=== PATIENT | male | born 1980 | race Caucasian/White ===

== ENCOUNTER 2016-10-01 10:48 | Emergency (ER) | payer OTHER ==
[~2016-10-01] VITALS: Ht 193 cm; Wt 95.5 kg
[2016-10-01 10:52] VITALS: BP 119/75; TEMP 98.7
[2016-10-01] MEDS ORDERED: ULTRAM 50MG TAB50 MG PO (12:05)
[2016-10-01 12:42] VITALS: PULSE 63
== END 2016-10-01 13:27 | disposition home or self-care (01) ==
LOC: COL.ER 10:48
DX: M54.2 Cervicalgia (principal)

== ENCOUNTER → 2016-10-06 | Outpatient (CLI) | payer OTHER ==
[~2016-10-06] MED LIST: ULTRAM 50MG TAB50 MG PO
== END ==
LOC: COL.RAD 09:23
DX: M54.2 Cervicalgia (principal)

== ENCOUNTER → 2016-10-23 | Outpatient (CLI) | payer OTHER | LOC: MHCPAIN 12:43 | DX: G89.29 Other chronic pain (principal); M47.22 Other spondylosis with radiculopathy, cervical region; R51 Headache | CPT/HCPCS: G0463 ==

== ENCOUNTER → 2016-11-05 | Outpatient (CLI) | payer OTHER | LOC: MHCPAIN 09:45 | DX: M50.90 Cervical disc disorder, unspecified, unspecified cervical region (principal) | CPT/HCPCS: A9585; J1100 ==

== ENCOUNTER → 2016-12-11 | Outpatient (CLI) | payer OTHER | LOC: MHCPAIN 08:51 | DX: G89.29 Other chronic pain (principal); M50.90 Cervical disc disorder, unspecified, unspecified cervical region; M54.12 Radiculopathy, cervical region; M54.81 Occipital neuralgia; R51 Headache | CPT/HCPCS: G0463 ==

== ENCOUNTER → 2016-12-18 | Outpatient (CLI) | payer OTHER | LOC: MHCPAIN 11:06 | DX: M54.81 Occipital neuralgia (principal) | CPT/HCPCS: J1100 ==

== ENCOUNTER 2017-06-09 08:23 | Emergency (ER) | payer OTHER ==
[~2017-06-09] VITALS: Ht 193 cm; Wt 97.7 kg
[2017-06-09 08:25] VITALS: TEMP 98.3
[2017-06-09] MEDS ORDERED: LEVAQUIN 5500 MG/TA1 PO (08:28)
[2017-06-09] MEDS ORDERED: LEXAPRO 10MG10 MG PO (08:28)
[2017-06-09] MEDS ORDERED: FLOMAX 0.40.4 MG/CAP PO (08:28)
[2017-06-09 09:15] LABS: BASO # 0.1 (0.0-0.2); BASO % 0.9 % (0.0-2.0); EOS # 0.1 (0.0-0.7); GRAN # 4.2 (1.4-6.5); GRAN % 64.8 % (42.2-75.2); HEMATOCRIT 41.5 % (42.0-52.0); HEMOGLOBIN 14.2 g/dl (13.5-18.0); LYMPH # 1.6 (1.2-3.4); LYMPH % 24.8 % (20.0-51.0); MEAN CELL VOLUME 83 fl (80.0-100.0); MEAN CORPUSCULAR HEMOGLOBIN 28 pg (27.0-31.0); MEAN CORPUSCULAR HGB CONC 34 g/dl (33.0-37.0); MONO # 0.5 (0.1-0.6); MONO % 7.2 % (1.7-9.3); PLATELET COUNT 264 K/mm3 (130-400); RED BLOOD COUNT 5.03 M/mm3 (4.20-5.60); WHITE BLOOD COUNT 6.4 K/mm3 (4.8-10.8)
[2017-06-09 09:28] LABS: ACETAMINOPHEN < 10 ug/mL (10-30); ADJUSTED CALCIUM 8.9 mg/dL (8.4-10.2); ALANINE AMINOTRANSFERASE 35 U/L (21-72); ALBUMIN 4.6 gm/dL (3.5-5.0); ALCOHOL(ethanol),MEDICAL < 10 mg/dL; ALKALINE PHOSPHATASE 85 U/L (50-136); ANION GAP 12 mmol/L (7-16); BILIRUBIN,TOTAL 0.4 mg/dL (0.0-1.0); BLOOD UREA NITROGEN 12 mg/dL (9-20); CALCIUM 9.4 mg/dL (8.4-10.2); CARBON DIOXIDE 23 mmol/L (22-30); CHLORIDE 105 mmol/L (98-107); CREATININE, serum 0.97 mg/dL (0.66-1.25); GLUCOSE 178 mg/dL (74-106); POTASSIUM 3.7 mmol/L (3.4-5.0); SALICYLATE < 1.0 mg/dL; SODIUM 139 mmol/L (137-145); TOTAL PROTEIN 7.3 gm/dL (6.4-8.2)
[2017-06-09 09:28] LABS: AMPHETAMINE URINE NEGATIVE; BARBITURATES URINE NEGATIVE; BENZODIAZEPINES URINE NEGATIVE; BUPRENORPHINE URINE NEGATIVE; METHADONE URINE NEGATIVE; OPIATES URINE NEGATIVE; OXYCODONE URINE NEGATIVE; PHENCYCLIDINE URINE NEGATIVE; PROPOXYPHENE URINE NEGATIVE; THC CANNABINOIDS URINE NEGATIVE; TRICYCLIC ANTIDEPRESS URINE NEGATIVE
[2017-06-09 13:39] LABS: COLLECTION METHOD CLEAN CATCH
[2017-06-09 13:46] LABS: MUCOUS Present /lpf; PH 5 (5-8); SQUAMOUS EPITHELIAL 0-2 /hpf; URINE APPEARANCE Turbid; URINE BACTERIA None Seen /hpf; URINE BILIRUBIN Negative (NEGATIVE); URINE BLOOD Negative (NEGATIVE); URINE CALCIUM OXALATE CRYSTAL Present /hpf; URINE COLOR Amber; URINE GLUCOSE 1+ (NEGATIVE); URINE KETONE Negative (NEGATIVE); URINE LEUKOCYTE ESTERASE Negative (NEGATIVE); URINE PROTEIN(semi-quant) Negative (NEGATIVE); URINE RBC 0-2 /hpf; URINE UROBILINOGEN Negative (NEGATIVE)
[2017-06-09 16:42] VITALS: BP 139/97; PULSE 63
== END 2017-06-09 16:42 ==
LOC: COL.ER 08:23
PROVIDERS: Physician Assistant
DX: R45.851 Suicidal ideations (principal); R45.850 Homicidal ideations; F32.9 Major depressive disorder, single episode, unspecified; F41.9 Anxiety disorder, unspecified; Z87.442 Personal history of urinary calculi

== ENCOUNTER → 2017-06-25 | Outpatient (CLI) | payer OTHER ==
[~2017-06-25] MED LIST changes: +CYMBALTA 20MG20 MG PO; +DESYREL 50MG50 MG PO; +FLOMAX 0.40.4 MG/CAP PO; +GLUCOPHAGE500 MG/TAB PO; +LEVAQUIN 5500 MG/TA1 PO; +LEXAPRO 10MG10 MG PO; +NEURONTIN400 MG/CAP PO
== END ==
LOC: MHCPAIN 11:18
DX: G89.29 Other chronic pain (principal); M50.123 Cervical disc disorder at C6-C7 level with radiculopathy; M54.81 Occipital neuralgia
CPT/HCPCS: G0463

== ENCOUNTER 2017-07-02 19:09 | Emergency (ER) | payer OTHER ==
[~2017-07-02] VITALS: Ht 193 cm; Wt 101.4 kg
[~2017-07-02 19:09] MED LIST changes: -CYMBALTA 20MG20 MG PO; -DESYREL 50MG50 MG PO; -GLUCOPHAGE500 MG/TAB PO; -NEURONTIN400 MG/CAP PO
[2017-07-02 19:13] VITALS: TEMP 98.9
[2017-07-02] MEDS ORDERED: CYMBALTA 20MG20 MG PO (19:17)
[2017-07-02] MEDS ORDERED: DESYREL 50MG50 MG PO (19:17)
[2017-07-02] MEDS ORDERED: NEURONTIN400 MG/CAP PO (19:18)
[2017-07-02 19:50] LABS: INFLUENZA A NEGATIVE; INFLUENZA B NEGATIVE
[2017-07-02 20:02] LABS: BASO % 0.3 % (0.0-2.0); EOS # 0.2 (0.0-0.7); EOS % 1.9 % (0-4.0); GRAN # 6.9 (1.4-6.5); GRAN % 72.2 % (42.2-75.2); HEMATOCRIT 37.5 % (42.0-52.0); HEMOGLOBIN 12.7 g/dl (13.5-18.0); LYMPH # 1.8 (1.2-3.4); LYMPH % 19.1 % (20.0-51.0); MEAN CELL VOLUME 83 fl (80.0-100.0); MEAN CORPUSCULAR HEMOGLOBIN 28 pg (27.0-31.0); MEAN CORPUSCULAR HGB CONC 34 g/dl (33.0-37.0); MEAN PLATELET VOLUME 9.4 fl (7.4-10.4); MONO # 0.6 (0.1-0.6); MONO % 6.3 % (1.7-9.3); PLATELET COUNT 233 K/mm3 (130-400); RED BLOOD COUNT 4.53 M/mm3 (4.20-5.60); REDCELL DISTRIBUTION WIDTH-CV 12.5 % (11.5-14.5)
[2017-07-02 20:07] LABS: BILIRUBIN,TOTAL 0.2 mg/dL (0.0-1.0); CALCIUM 9.1 mg/dL (8.4-10.2); CREATININE, serum 0.89 mg/dL (0.66-1.25); POTASSIUM 3.7 mmol/L (3.4-5.0); TOTAL PROTEIN 6.9 gm/dL (6.4-8.2)
[2017-07-02] MEDS ORDERED: GLUCOPHAGE500 MG/TAB PO (21:35)
[2017-07-02 22:00] VITALS: BP 144/94; PULSE 84
== END 2017-07-02 21:57 | disposition home or self-care (01) ==
LOC: COL.ER 19:09
PROVIDERS: Emergency Medicine
DX: B34.9 Viral infection, unspecified (principal); E11.65 Type 2 diabetes mellitus with hyperglycemia; F41.9 Anxiety disorder, unspecified; G56.91 Unspecified mononeuropathy of right upper limb; Z87.442 Personal history of urinary calculi; Z87.891 Personal history of nicotine dependence
CPT/HCPCS: J1885; J7030

== ENCOUNTER → 2017-08-04 | Outpatient (CLI) | payer OTHER ==
[~2017-08-04] MED LIST changes: +CYMBALTA 20MG20 MG PO; +DESYREL 50MG50 MG PO; +GLUCOPHAGE500 MG/TAB PO; +NEURONTIN400 MG/CAP PO
[2017-08-04 08:21] VITALS: BP 148/93; PULSE 70
[2017-08-04 08:22] VITALS: BP 145/92; PULSE 74
== END ==
LOC: COL.RAD 07:15
DX: D35.02 Benign neoplasm of left adrenal gland (principal); G44.52 New daily persistent headache (NDPH); N20.0 Calculus of kidney
CPT/HCPCS: J1200; Q9967